=== PATIENT | male | born 1970 | race Two or more races ===

== ENCOUNTER 2021-01-13 07:20 | Day surgery (SDC) | payer OTHER | END 2021-01-13 12:00 | disposition home or self-care (01) | LOC: AMB-ENDOS 07:20 | PROVIDERS: ATTEND Surgery | DX: D12.3 Benign neoplasm of transverse colon (principal); K64.8 Other hemorrhoids; Z20.822 Contact with and (suspected) exposure to COVID-19; Z12.11 Encounter for screening for malignant neoplasm of colon ==